=== PATIENT | male | born 1985 | race Caucasian/White ===

== ENCOUNTER 2020-01-18 14:42 | Emergency (ER) | payer OTHER, SELFPAY ==
[2020-01-18 14:44] VITALS: BP 127/90; PULSE 99; RESP 18; TEMP 35.9; O2SAT 98
--- NOTE | 2020-01-18 15:00 | ED.GENADULT ---
HPI - General Adult General Chief complaint: Unspecified Stated complaint: sore throat, swollen tonsils Time Seen by Provider: 01/18/20 14:52 History of Present Illness HPI narrative: Patient presents for sore throat. He has a history of tonsillitis. He said one side hurts more than the other. He gives it a 6 out of 10. He took ibuprofen at home. Started yesterday. Been getting worse. He is running fever but no chills and sweats. He denies other symptoms. History of surgeries includes bilateral inguinal hernias. He does not smoke cigarettes, he does drink alcohol, he does not smoke marijuana. He works on [employer]. Onset (ago): day(s) Radiation: non-radiation Severity: moderate Severity scale (1-10): 6 Pain Consistency: constant Relieving factors: none Exacerbating factors: none Associated symptoms: fever/chills Treatments prior to arrival: NSAID Related Data Allergies Allergy/AdvReac Type Severity Reaction Status Date / Time Penicillins Allergy Mild unknown Verified 01/18/20 14:59 Review of Systems Review of Systems: Narrative: CONSTITUTIONAL: Denies fever, chills, or sweats. EYES: Denies visual changes, redness, or discharge. ENT: Denies rhinorrhea, congestion, but does have sore throat CARDIOVASCULAR: Denies chest pain, palpitations, or edema. RESPIRATORY: Denies cough or dyspnea. GASTROINTESTINAL: Denies abdominal pain, nausea, vomiting, or diarrhea. GENITOURINARY: Denies dysuria or hematuria. SKIN: Denies rash or itching. MUSCULOSKELETAL: Denies back pain, joint pain, or myalgia. NEUROLOGIC: Denies headache, numbness, or weakness. . All systems reviewed & are unremarkable except as noted in HPI and below PMFSH Past Medical History Medical History Acute tonsillitis Surgical History Surgical History (Updated 01/18/20 @ 15:03 by Patricia Holman MD) History of inguinal hernia repair Social History Social History (Updated 01/18/20 @ 15:03 by Patricia Holman MD) Smoking status: Never smoker Alcohol intake: current Substance use: never Gender identity (if verbalized by the patient): Male Exam Narrative: Exam Narrative: GENERAL: Well-appearing, well-nourished, and in no acute distress. Diaphoretic on his back. HEAD: Normocephalic, atraumatic. EYES: PERRLA and EOMI. ENT: Nares clear, no rhinorrhea or epistaxis. Mucous membranes moist. Tonsils are large red with exudate. NECK: Supple. CHEST: Clear to auscultation. No respiratory distress. HEART: Regular rate and rhythm. No murmur heard. Normal peripheral pulses. ABDOMEN: Soft, nontender, nondistended, normal active bowel sounds. EXTREMITIES: Normal range of motion. No edema. SKIN: Warm, dry, no rash. NEURO: No focal deficits. Alert and oriented x3. PSYCH: Normal mood and affect. Course Vital Signs Vital signs: Vital Signs Temperature 96.7 F L 01/18/20 14:44 Pulse Rate 99 01/18/20 14:44 Respiratory Rate 18 01/18/20 14:44 Blood Pressure 127/90 01/18/20 14:44 Pulse Oximetry 98 01/18/20 14:44 Temperature 96.7 F L 01/18/20 14:44 Pulse Rate 99 01/18/20 14:44 Respiratory Rate 18 01/18/20 14:44 Blood Pressure 127/90 01/18/20 14:44 Pulse Oximetry 98 01/18/20 14:44 Medical Decision Making Medical Records Medical records reviewed: Yes I reviewed the patient's medical records. Vital Signs Vital Signs: Vital Signs Temperature 96.7 F L 01/18/20 14:44 Pulse Rate 99 01/18/20 14:44 Respiratory Rate 18 01/18/20 14:44 Blood Pressure 127/90 01/18/20 14:44 Pulse Oximetry 98 01/18/20 14:44 Temperature 96.7 F L 01/18/20 14:44 Pulse Rate 99 01/18/20 14:44 Respiratory Rate 18 01/18/20 14:44 Blood Pressure 127/90 01/18/20 14:44 Pulse Oximetry 98 01/18/20 14:44 Discharge Plan Discharge Clinical Impression: Acute tonsillitis Qualifiers: Pharyngitis/tonsillitis etiology: unspecified etiology Qualified Code(s): J03.90 - Acut
[2020-01-18] MEDS: IBUPROFEN 600 MG TABLET PO (15:16)
[2020-01-18] MEDS: CLINDAMYCIN HCL 150 MG CAP 600 MG PO (15:16)
[2020-01-18 16:16] VITALS: BP 136/96; PULSE 96; RESP 18; O2SAT 95
== END 2020-01-18 17:53 | disposition home or self-care (01) ==
PROVIDERS: Emergency Provider Emergency Medicine
DX: J03.90 Acute tonsillitis, unspecified (principal)
CPT/HCPCS: 99283; A9270

== ENCOUNTER 2020-01-20 11:08 | Emergency (ER) | payer OTHER, SELFPAY ==
[2020-01-20 11:13] VITALS: BP 147/97; PULSE 92; RESP 18; TEMP 36.7; O2SAT 98
[2020-01-20 11:20] VITALS: RESP 18
--- NOTE | 2020-01-20 13:21 | ED.GENADULT ---
HPI - General Adult General Chief complaint: Unspecified Stated complaint: tonsils swollen Time Seen by Provider: 01/20/20 13:20 Source: patient Mode of arrival: ambulatory Limitations: no limitations History of Present Illness HPI narrative: Sore throat for the last 5 days. Patient denies any fever, chills, headache, nausea, vomiting, shortness of breath, coughing, chest pain. Patient denies anybody else have the same symptoms around him. Patient denies exposure to anybody with known to have COVID-19. Patient started on clindamycin 2 days ago without any improvement Related Data Allergies Allergy/AdvReac Type Severity Reaction Status Date / Time Penicillins Allergy Mild unknown Verified 01/18/20 14:59 Review of Systems Review of Systems: Narrative: CONSTITUTIONAL: Denies fever, chills, or sweats. EYES: Denies visual changes, redness, or discharge. ENT: Sore throat CARDIOVASCULAR: Denies chest pain, palpitations, or edema. RESPIRATORY: Denies cough or dyspnea. GASTROINTESTINAL: Denies abdominal pain, nausea, vomiting, or diarrhea. GENITOURINARY: Denies dysuria or hematuria. SKIN: Denies rash or itching. MUSCULOSKELETAL: Denies back pain, joint pain, or myalgia. NEUROLOGIC: Denies headache, numbness, or weakness. PSYCHIATRIC: Denies anxiety or depression. [facility] Surgical History Surgical History (Updated 01/18/20 @ 15:03 by Patricia Holman MD) History of inguinal hernia repair Social History Social History (Updated 01/18/20 @ 15:03 by Patricia Holman MD) Smoking status: Never smoker Alcohol intake: current Substance use: never Gender identity (if verbalized by the patient): Male Exam Narrative: Exam Narrative: General appearance: Well-developed, well-nourished Skin: Normal color Head: Normocephalic, nontraumatic Eyes: Clear conjunctiva ENT: Erythematous oropharynx, large tonsils, kissing tonsils, no discharge Neck: Supple, nontender, no lymphadenopathy Chest and respiratory: Airway patent, no respiratory distress, no accessory muscle use Heart: Regular rate/rhythm Abdomen: Soft, nontender, no organomegaly, quiet bowel sounds Vascular: Normal peripheral pulses, normal capillary refill. Musculoskeletal: Normal range of motion, nontender back Neurologic: Alert and oriented ?3, [employer] is normal as tested, no gross motor deficit Course Course Emergency Course: Stable Vital Signs Vital signs: Vital Signs Temperature 36.7 C 01/20/20 11:13 Pulse Rate 92 01/20/20 11:13 Respiratory Rate 18 01/20/20 11:13 Blood Pressure 147/97 H 01/20/20 11:13 Pulse Oximetry 98 01/20/20 11:13 Temperature 36.7 C 01/20/20 11:13 Pulse Rate 92 01/20/20 11:13 Respiratory Rate 18 01/20/20 11:20 Blood Pressure 147/97 H 01/20/20 11:13 Pulse Oximetry 98 01/20/20 11:13 Medical Decision Making MDM Narrative Medical decision making narrative: Acute pharyngitis, strep versus viral infection is my concern. Rapid strep, mono test ordered. Tylenol 650, Decadron 10 mg IM ordered. Further plan to follow Differential Diagnosis Differential Diagnosis: Viral pharyngitis, strep throat, Vital Signs Vital Signs: Vital Signs Temperature 36.7 C 01/20/20 11:13 Pulse Rate 92 01/20/20 11:13 Respiratory Rate 18 01/20/20 11:13 Blood Pressure 147/97 H 01/20/20 11:13 Pulse Oximetry 98 01/20/20 11:13 Temperature 36.7 C 01/20/20 11:13 Pulse Rate 92 01/20/20 11:13 Respiratory Rate 18 01/20/20 11:20 Blood Pressure 147/97 H 01/20/20 11:13 Pulse Oximetry 98 01/20/20 11:13 Lab Data Labs: Lab Results 01/20/20 Range/Units 14:01 Monoscreen Negative (Negative) Strep Screen
[2020-01-20] MEDS: ACETAMINOPHEN 500 MG TABLET 1000 MG PO (14:07)
[2020-01-20] MEDS: LIDOCAINE HCL 2% VISC SOLN 15 ML UDC PO (14:31)
[2020-01-20 14:37] VITALS: TEMP 36.7
[2020-01-20 15:29] LABS: Monoscreen Negative (Negative); Negative Monotest Control Negative (Negative); Positive Monotest Control Positive (Positive)
[2020-01-20 15:49] VITALS: BP 132/78; PULSE 88; RESP 16; O2SAT 98
[2020-01-21 12:10] LABS: SARS-CoV-2 RNA PCR Negative
== END 2020-01-20 15:50 | disposition home or self-care (01) ==
PROVIDERS: Emergency Provider Emergency Medicine
DX: J02.9 Acute pharyngitis, unspecified (principal); Z20.828 Contact with and (suspected) exposure to other viral communicable diseases
CPT/HCPCS: 36415; 86308; 87081; 87635; 87880; 96374; 99284; A9270; C9803; J1100; U0003